=== PATIENT | female | born 2000 | race African-American/Black ===

== ENCOUNTER 2024-06-28 06:58 | Emergency (ER) | payer OTHER ==
[~2024-06-28] VITALS: Ht 160 cm; Wt 52.1 kg
[2024-06-28 08:01] LABS: APPEARANCE, URINE CLEAR (CLEAR); BACTERIA, URINE AUTO NEGATIVE (NEGATIVE); BILIRUBIN, URINE AUTO NEGATIVE (NEGATIVE); BLOOD, URINE BLOOD NEGATIVE (NEGATIVE); COLOR, URINE YELLOW (YELLOW); GLUCOSE, URINE (UA) AUTO NEGATIVE (NEGATIVE); KETONE, URINE AUTO TRACE mg/dL (NEGATIVE); LEUKOCYTE ESTERASE, URINE AUTO NEGATIVE (NEGATIVE); MUCUS, URINE SMALL (NEGATIVE); NITRITE, URINE AUTO NEGATIVE (NEGATIVE); PROTEIN, URINE AUTO NEGATIVE (NEGATIVE); RBC, URINE AUTO 0 /HPF (0-3); SPECIFIC GRAVITY URINE AUTO 1.018 (1.002-1.035); SQUAMOUS EPITHELIAL CELL UR AU 1 /HPF (0-6); UROBILINOGEN, URINE AUTO 0.2 mg/dL (0.0-2.0); WBC, URINE AUTO 1 /HPF (0-3)
[2024-06-28 08:03] LABS: BASO % 0.4 % (0.0-1.0); EOS # 0.1 10^3/uL (0.0-0.5); EOS % 1.3 % (0.0-3.0); HEMATOCRIT 36.5 % (36.0-47.0); LYMPH # 1.8 10^3/uL (1.5-5.0); LYMPH % 37.3 % (24.0-44.0); MEAN CORPUSCULAR HEMOGLOBIN 30.1 pg (27.0-33.0); MEAN CORPUSCULAR HGB CONC 32.9 g/dl (32.0-36.5); MEAN CORPUSCULAR VOLUME 91.5 fl (80.0-96.0); MONO # 0.5 10^3/uL (0.0-0.8); MONO % 9.7 % (2.0-8.0); NEUTROPHILS # 2.4 10^3/uL (1.5-8.5); NEUTROPHILS % 50.9 % (36.0-66.0); PLATELET COUNT, AUTOMATED 243 10^3/uL (150-450); RED BLOOD COUNT 3.99 10^6/uL (4.00-5.40); WHITE BLOOD COUNT 4.7 10^3/uL (4.0-10.0)
[2024-06-28 08:22] LABS: HCG, SERUM QUALITATIVE NEGATIVE (NEGATIVE)
[2024-06-28 08:23] LABS: LIPASE 28 U/L (12-53)
[2024-06-28 08:25] LABS: ALBUMIN 3.5 G/DL (3.2-5.2); ALKALINE PHOSPHATASE 50 U/L (35-104); ALT/SGPT 12 U/L (7.0-40); AST/SGOT 16 U/L (<34); BILIRUBIN,DIRECT 0.1 MG/DL (<0.4); BILIRUBIN,TOTAL 0.4 MG/DL (0.3-1.2); BLOOD UREA NITROGEN 8 MG/DL (9-23); CALCIUM LEVEL 9.1 MG/DL (8.5-10.1); CARBON DIOXIDE LEVEL 26 MMOL/L (20-31); CHLORIDE LEVEL 108 MMOL/L (98-107); CREATININE FOR GFR 0.78 MG/DL (0.55-1.30); GLOMERULAR FILTRATION RATE > 60.0 (>60); GLUCOSE, FASTING 84 MG/DL (60-100); POTASSIUM SERUM 4.2 MMOL/L (3.5-5.1); SODIUM LEVEL 141 MMOL/L (136-145); TOTAL PROTEIN 6.8 G/DL (5.7-8.2)
[2024-06-28 08:52] LABS: HIV 1&2 SCREEN NEGATIVE (NEGATIVE)
[2024-06-28] MEDS: MAALOX 30 ML SUSP *UDC PO ONE (09:46)
[2024-06-28] MEDS ORDERED: MAALSUS19 PO (10:38)
[2024-06-28 11:19] VITALS: BP 114/72; TEMP 96.7; O2SAT 100
[2024-06-29] MEDS ORDERED: ALMASUS (07:54)
[2024-06-29] MEDS ORDERED: MIRA3350 PO (14:19)
== END 2024-06-28 11:30 | disposition home or self-care (01) ==
LOC: M ED 06:58
DX: A09 Infectious gastroenteritis and colitis, unspecified (principal); Z79.899 Other long term (current) drug therapy

== ENCOUNTER 2024-06-29 07:48 | Emergency (ER) | payer OTHER ==
[~2024-06-29] VITALS: Ht 160 cm; Wt 51.8 kg
[~2024-06-29 07:48] MED LIST: MAALSUS19 PO
[2024-06-29] MEDS ORDERED: ALMASUS (07:54)
[2024-06-29 12:51] VITALS: BP 115/77; TEMP 98.5; O2SAT 99
[2024-06-29] MEDS: BISACODYL 10MG SUPP PR ONE (13:03)
[2024-06-29] MEDS ORDERED: MIRA3350 PO (14:19)
== END 2024-06-29 14:24 | disposition home or self-care (01) ==
LOC: M ED 07:48
DX: K59.00 Constipation, unspecified (principal); Z79.899 Other long term (current) drug therapy

== ENCOUNTER 2024-08-04 06:39 | Emergency (ER) | payer OTHER ==
[~2024-08-04] VITALS: Ht 157.5 cm; Wt 53.6 kg
[~2024-08-04 06:39] MED LIST changes: +ALMASUS; +MIRA3350 PO
[2024-08-04] MEDS: METOCLOPRAMIDE INJ 10MG/2ML VIAL IV ONE (08:08)
[2024-08-04] MEDS: NS (Normal Saline) 0.9% 1,000 ML IV ONE (08:08)
[2024-08-04] MEDS: KETOROLAC 30 MG/ML 1ML VIAL IV ONE (08:09)
[2024-08-04] MEDS: ACETAMINOPHEN 500 MG TAB PO ONE (08:09)
[2024-08-04] MEDS: diphenhydrAMINE 50MG/ML VIAL IV ONE (10:07)
[2024-08-04 11:48] VITALS: BP 103/59; TEMP 97.8; O2SAT 100
== END 2024-08-04 11:49 | disposition home or self-care (01) ==
LOC: M ED 06:39
DX: R51.9 Headache, unspecified (principal)
CPT/HCPCS: 96361; 96374; 96375; 99284; J1100; J1200; J1885; J2765

== ENCOUNTER 2024-08-28 09:36 | Emergency (ER) | payer OTHER ==
[~2024-08-28] VITALS: Ht 160 cm; Wt 51.4 kg
[2024-08-28 10:52] LABS: BASO % 0.3 % (0.0-1.0); EOS % 0.3 % (0.0-3.0); HEMOGLOBIN 11.7 g/dl (12.0-15.5); LYMPH # 1.9 10^3/uL (1.5-5.0); LYMPH % 28.3 % (24.0-44.0); MEAN CORPUSCULAR HEMOGLOBIN 30.4 pg (27.0-33.0); MEAN CORPUSCULAR HGB CONC 33.4 g/dl (32.0-36.5); MEAN CORPUSCULAR VOLUME 90.9 fl (80.0-96.0); MONO # 0.5 10^3/uL (0.0-0.8); MONO % 7.5 % (2.0-8.0); NEUTROPHILS # 4.2 10^3/uL (1.5-8.5); NEUTROPHILS % 63.4 % (36.0-66.0); PLATELET COUNT, AUTOMATED 254 10^3/uL (150-450); RED BLOOD COUNT 3.85 10^6/uL (4.00-5.40); WHITE BLOOD COUNT 6.5 10^3/uL (4.0-10.0)
[2024-08-28 11:17] LABS: BLOOD UREA NITROGEN 9 MG/DL (9-23); CALCIUM LEVEL 8.9 MG/DL (8.5-10.1); CARBON DIOXIDE LEVEL 25 MMOL/L (20-31); CHLORIDE LEVEL 109 MMOL/L (98-107); CREATININE FOR GFR 0.76 MG/DL (0.55-1.30); GLOMERULAR FILTRATION RATE > 60.0 (>60); GLUCOSE, FASTING 72 MG/DL (60-100); POTASSIUM SERUM 3.9 MMOL/L (3.5-5.1); SODIUM LEVEL 140 MMOL/L (136-145)
[2024-08-28 11:31] LABS: HCG, SERUM QUALITATIVE NEGATIVE (NEGATIVE)
[2024-08-28] MEDS: KETOROLAC 30 MG/ML 1ML VIAL IV ONE (12:29)
[2024-08-28 12:30] LABS: LIPASE 26 U/L (12-53)
[2024-08-28 12:32] LABS: ALBUMIN 3.4 G/DL (3.2-5.2); ALKALINE PHOSPHATASE 48 U/L (35-104); ALT/SGPT 14 U/L (7.0-40); AST/SGOT 20 U/L (<34); BILIRUBIN,DIRECT 0.1 MG/DL (<0.4); BILIRUBIN,TOTAL 0.4 MG/DL (0.3-1.2); TOTAL PROTEIN 6.7 G/DL (5.7-8.2)
[2024-08-28 12:34] LABS: FREE T4 0.98 NG/DL (0.89-1.76); THYROID STIMULATING HORMONE 1.974 uIU/ML (0.55-4.78)
[2024-08-28] MEDS ORDERED: ISOVUE-370 76% 100ML VIAL As Ordered ONE (12:45)
[2024-08-28] MEDS ORDERED: MIRA3350 PO (13:50)
[2024-08-28] MEDS ORDERED: AMOX875T2 PO (13:50)
[2024-08-28 14:02] VITALS: BP 109/70; TEMP 97.6; O2SAT 100
== END 2024-08-28 14:17 | disposition home or self-care (01) ==
LOC: M ED 09:36
DX: R55 Syncope and collapse (principal); R10.9 Unspecified abdominal pain; K59.00 Constipation, unspecified; Z79.2 Long term (current) use of antibiotics
CPT/HCPCS: 74177; 80048; 80076; 83690; 84439; 84443; 84703; 85025; 93005; 96374; 99284; J1885; Q9967

== ENCOUNTER → 2025-02-06 | Outpatient (CLI) | payer OTHER ==
[~2025-02-06] MED LIST changes: +AMOX875T2 PO; +COLA100C5 PO; +CYCL5TAB4 PO; +NAPR-837 PO
== END ==
LOC: M CARPUL 13:03
DX: R55 Syncope and collapse (principal)

== ENCOUNTER → 2025-03-08 | Outpatient (CLI) | payer OTHER ==
[~2025-03-08] MED LIST changes: +DIPH50CA31 PO; +PRED20TA PO
== END ==
LOC: M CARPUL 14:11
DX: R55 Syncope and collapse (principal)

== ENCOUNTER 2025-03-09 15:55 | Emergency (ER) | payer OTHER ==
[~2025-03-09] VITALS: Ht 160 cm; Wt 49.8 kg
[~2025-03-09 15:55] MED LIST changes: -DIPH50CA31 PO; -PRED20TA PO
[2025-03-09] MEDS ORDERED: ISOVUE-370 76% 100 ML VIAL As Ordered ONE (17:27)
[2025-03-09 17:51] LABS: CALCIUM LEVEL 8.8 MG/DL (8.5-10.1); CARBON DIOXIDE LEVEL 27 MMOL/L (20-31); CHLORIDE LEVEL 105 MMOL/L (98-107); CREATININE FOR GFR 0.83 MG/DL (0.55-1.30); GLOMERULAR FILTRATION RATE > 90.0 (>60); POTASSIUM SERUM 4.0 MMOL/L (3.5-5.1); SODIUM LEVEL 140 MMOL/L (136-145)
[2025-03-09 18:17] LABS: HCG, SERUM QUALITATIVE NEGATIVE (NEGATIVE)
[2025-03-09 20:08] VITALS: BP 109/65; TEMP 98.1; O2SAT 100
== END 2025-03-09 20:13 | disposition home or self-care (01) ==
LOC: M ED 15:55
DX: R07.9 Chest pain, unspecified (principal); Z79.52 Long term (current) use of systemic steroids; Z79.899 Other long term (current) drug therapy
CPT/HCPCS: 36415; 71275; 74174; 80048; 84703; 99284; Q9967

== ENCOUNTER 2025-03-11 12:41 | Emergency (ER) | payer OTHER ==
[~2025-03-11] VITALS: Ht 160 cm; Wt 50.0 kg
[2025-03-11] MEDS ORDERED: PRED20TA PO (15:05)
[2025-03-11] MEDS ORDERED: DIPH50CA31 PO (15:05)
[2025-03-11 15:17] VITALS: BP 93/52; TEMP 97.4; O2SAT 100
== END 2025-03-11 15:19 | disposition home or self-care (01) ==
LOC: M ED 12:41
DX: T78.40XA Allergy, unspecified, initial encounter (principal); R21 Rash and other nonspecific skin eruption; Z79.52 Long term (current) use of systemic steroids; Z79.899 Other long term (current) drug therapy

== ENCOUNTER → 2025-04-25 | Outpatient (CLI) | payer OTHER ==
[~2025-04-25] MED LIST changes: +DIPH50CA31 PO; +PRED20TA PO
== END ==
LOC: M RAD 16:00
DX: R55 Syncope and collapse (principal); R51.9 Headache, unspecified; R42 Dizziness and giddiness